=== PATIENT | male | born 1965 | race Caucasian/White ===

== ENCOUNTER 2021-12-10 15:39 | Outpatient (RCR) | payer OTHER, SELFPAY | END 2021-12-15 23:59 | LOC: NS 15:39 | PROVIDERS: PCP Family Medicine; Referring Provider Family Medicine; Visit Provider Family Medicine | DX: Z71.3 Dietary counseling and surveillance (principal); R79.89 Other specified abnormal findings of blood chemistry; Z68.35 Body mass index [BMI] 35.0-35.9, adult | CPT/HCPCS: 97802 ==

== ENCOUNTER 2022-01-03 15:58 | Outpatient (RCR) | payer OTHER, SELFPAY | END 2022-01-15 23:59 | LOC: NS 15:58 | PROVIDERS: PCP Family Medicine; Referring Provider Family Medicine; Visit Provider Family Medicine | DX: R79.89 Other specified abnormal findings of blood chemistry (principal) | CPT/HCPCS: 97803 ==

== ENCOUNTER 2022-02-14 16:00 | Outpatient (RCR) | payer OTHER, SELFPAY | END 2022-02-14 23:59 | LOC: NS 16:00 | PROVIDERS: PCP Family Medicine; Referring Provider Family Medicine; Visit Provider Family Medicine | DX: R79.89 Other specified abnormal findings of blood chemistry (principal) | CPT/HCPCS: 97803 ==

== ENCOUNTER 2022-03-27 15:53 | Outpatient (RCR) | payer OTHER, SELFPAY | END 2022-04-17 23:59 | LOC: NS 15:53 | PROVIDERS: PCP Family Medicine; Referring Provider Family Medicine; Visit Provider Family Medicine | DX: R79.89 Other specified abnormal findings of blood chemistry (principal) | CPT/HCPCS: 97803 ==

== ENCOUNTER 2022-05-08 15:59 | Outpatient (RCR) | payer OTHER, SELFPAY | END 2022-05-08 23:59 | disposition home or self-care (01) | LOC: NS 15:59 | PROVIDERS: PCP Family Medicine; Referring Provider Family Medicine; Visit Provider Family Medicine | DX: Z71.3 Dietary counseling and surveillance (principal); R79.89 Other specified abnormal findings of blood chemistry; E66.9 Obesity, unspecified; Z68.27 Body mass index [BMI] 27.0-27.9, adult | CPT/HCPCS: 97803 ==